=== PATIENT | female | born 1960 | race Caucasian/White ===

== ENCOUNTER 2016-06-24 12:37 | Inpatient (IN) | payer MEDICAID, OTHER ==
--- NOTE | 2016-06-24 13:59 | C.PDOC ---
History Of Present Illness 56-year-old female, presents to the emergency department, prescreened for detox from heroin. Last use was this morning; States he also uses Marijuana. Denies any other drug use. No other complaints at this time. PRESCREEN FOR HEROIN DETOX. LAST USE THIS MORNING. +MARIJUANA, DENIES OTHER DRUG USE. ASYMPT. EXAM NEG Time Seen by Provider: 06/24/16 13:54 Chief Complaint (Nursing): Substance Abuse History Per: Patient History/Exam Limitations: no limitations Past Medical History Reviewed: Historical Data, Nursing Documentation, Vital Signs Vital Signs: Last Vital Signs Temp 98.2 F 06/24/16 13:46 Pulse 61 06/24/16 13:46 Resp 18 06/24/16 13:46 BP 131/85 06/24/16 13:46 Pulse Ox 100 06/24/16 15:43 - Medical History PMH: Gastrointestinal Ulcer Denies: Diabetes, Hepatitis, HIV, HTN, Chronic Kidney Disease, Seizures, Sexually Transmitted Disease - [facility] Procedures DRUG DETOXIFICATION (08/26/14) OTHER GROUP THERAPY (08/26/14) Family History: States: Unknown Family Hx - Social History Hx Tobacco Use: Yes Hx Alcohol Use: No Hx Substance Use: Yes (last used this morning) - Immunization History Hx Tetanus Toxoid Vaccination: No Hx Influenza Vaccination: No Hx Pneumococcal Vaccination: No Review Of Systems Except As Marked, All Systems Reviewed And Found Negative. Constitutional: Negative for: Fever Cardiovascular: Negative for: Chest Pain Respiratory: Negative for: Shortness of Breath Gastrointestinal: Negative for: Vomiting Psych: Negative for: Suicidal ideation Physical Exam - Physical Exam Appears: Non-toxic, No Acute Distress Skin: Warm, Dry, No Rash Head: Atraumatic, Normacephalic Eye(s): bilateral: Normal Inspection, PERRL Nose: Normal Neck: Normal ROM Respiratory: No Accessory Muscle Use Gastrointestinal/Abdominal: Normal Exam Back: Normal Inspection Extremity: Normal ROM Neurological/Psych: Oriented x3, Normal Speech ED Course And Treatment - Laboratory Results Result Diagrams: 06/24/16 14:37 06/24/16 14:37 O2 Sat by Pulse Oximetry: 100 Progress - Re-Evaluation Re-evaluation Note: 06/24/16 13:58 D/W CRISIS AASHISH RAGLAND EVAL IN ER 06/24/16 15:43 MED CLEAR FOR DETOX - Data Reviewed Data Reviewed: Lab, Old records - Continuity of Care Discussed pt. case with performance test consultant/specialty: Psychiatry Disposition Counseled Patient/Family Regarding: Studies Performed, Diagnosis - Disposition Disposition: HOSPITALIZED Disposition Time: 18:04 Condition: STABLE - Clinical Impression Clinical Impression: Opiate dependence - Scribe Statement The provider has reviewed the documentation as recorded by the Greggibgustavo Schaffer All medical record entries made by the Scribe were at my direction and personally dictated by me. I have reviewed the chart and agree that the record accurately reflects my personal performance of the history, physical exam, medical decision making, and the department course for this patient. I have also personally directed, reviewed, and agree with the discharge instructions and disposition. Decision To Admit - Pt Status Changed To: Hospital Disposition Of: Inpatient - Admit Certification Admit to Inpatient:: After my assessment, the patient will require hospitalization for at least two midnights. This is because of the severity of symptoms shown, intensity of services needed, and/or the medical risk in this patient being treated as an outpatient. - InPatient: Physician Admission Certification: I certify that this patient requires 2 or more midnights of care for the following reason:: SEE NOTE - . Bed Request Type: Detox Admitting Physician: Dorcas Garcia Patient Diagnosis: Opiate dependence
[2016-06-24 14:44] LABS: BASO # 0.1 K/uL (0.0-0.2); BASO % 0.5 % (0.0-2.0); EOS # 0.2 K/uL (0.0-0.7); EOS % 2.2 % (0.0-4.0); HEMATOCRIT 36.9 % (34.0-47.0); LYMPH # 3.5 K/uL (1.0-4.3); LYMPH % 33.4 % (20.0-40.0); MEAN CELL VOLUME 87.6 fL (81.0-99.0); MEAN CORPUSCULAR HEMOGLOBIN 28.6 pg (27.0-31.0); MEAN CORPUSCULAR HGB CONC 32.7 g/dL (33.0-37.0); MEAN PLATELET VOLUME 9.2 fL (7.2-11.7); MONO # 0.6 K/uL (0.0-0.8); MONO % 5.6 % (0.0-10.0); RED CELL DISTRIBUTION WIDTH 12.8 % (11.5-14.5); WHITE BLOOD COUNT 10.4 K/uL (4.8-10.8)
[2016-06-24 14:49] LABS: RBC URINE 10 /hpf (0-3); URINE BACTERIA RARE (<OCC); URINE BILIRUBIN NEGATIVE (NEGATIVE); URINE BLOOD 1+ (NEGATIVE); URINE COLOR Yellow (YELLOW); URINE GLUCOSE (UA) NORMAL (Normal); URINE KETONE TRACE mg/dL (NEGATIVE); URINE LEUKOCYTE ESTERASE NEG Leu/uL (Negative); URINE PROTEIN NEGATIVE (NEGATIVE); URINE UROBILINOGEN NORMAL mg/dL (0.2-1.0); WBC URINE 1 /hpf (0-5)
[2016-06-24 14:57] LABS: CHLORIDE 104 mmol/L (98-107)
[2016-06-24 14:58] LABS: POTASSIUM 3.8 mmol/L (3.6-5.2); SODIUM 140 mmol/L (132-148)
[2016-06-24 15:00] LABS: ALB/GLOB RATIO 1.3 (1.0-2.1); ALKALINE PHOSPHATASE 112 U/L (38-126); AST/SGOT 30 U/L (14-36); BILIRUBIN,TOTAL 0.9 mg/dL (0.2-1.3); BLOOD UREA NITROGEN 8 mg/dL (7-17); CARBON DIOXIDE 24 mmol/L (22-30); GFR AFRICAN-AMERICAN > 60; TOTAL PROTEIN 7.7 g/dL (6.3-8.3)
[2016-06-24 15:01] LABS: ALCOHOL SERUM < 10 mg/dl (0-10); ALT/SGPT 9 U/L (9-52); CALCIUM 8.8 mg/dl (8.6-10.4); GLUCOSE,RANDOM 80 mg/dL (65-105)
[2016-06-24] MEDS ORDERED: Buprenorphine Hydrochloride 2 mg SL ONE ×2 (19:20→20:24)
[2016-06-25] MEDS ORDERED: Aluminum Hydroxide/Magnesium Hydroxide Susp (30 mL) PO PRN (08:46)
[2016-06-25] MEDS: Buprenorphine Hydrochloride 2 mg SL SCH (09:51)
--- NOTE | 2016-06-25 12:16 | PCM.PSYCH ---
Initial Psychiatric Evaluation - Initial Psychiatric Evaluation Type of Admission: Voluntary Legal Status: Capacity Chief Complaint (in patient's own words): "I need help so bad." History of Present Illness and Precipitating Events: The patient is seen, chart reviewed and case discussed. This is a 56-year-old -[place] female, lost job in late 2015, living with her adult daughter in [place], . The patient uses 7 bags of intranasal heroin for the past 2-3 months. She has been clean for about 2 years prior to that and she was in detox in our program in 2014. She claims that after her uncle she got depressed and relapsed. She first used opiates in her late 40s. However she had used cocaine on and off prior to that and also she still uses marijuana occasionally and smokes 6 or 7 cigarettes a day. The patient is tearful and depressed but denies feeling suicidal. No manic or psychotic symptoms elicited. She has losses in her life and stressors. She is currently on no medications but used an antidepressant in the past. She particularly complains of not having appetite and losing weight. She denies alcohol use and other drug use. Past psych history: Depression on and off. This is her fourth detox and she was in [facility] [place] for rehabilitation in the past. Family psych history: Denies Medical history: Weight loss Current Medications: Active Medications Generic Name Dose Route Start Last Admin Trade Name Freq PRN Reason Stop Dose Admin Al Hydrox/Mg Hydrox/Simethicone 30 ml 06/25/16 08:46 Maalox 30 Ml PO TID PRN Indigestion / Heartburn Buprenorphine HCl 8 mg 06/25/16 10:00 06/25/16 09:51 Subutex SL 06/29/16 09:59 8 mg DAILY SARIKA Administration Taper Clonidine HCl 0.1 mg 06/24/16 18:17 Catapres PO Q8 PRN opiate withdrawal Hydroxyzine HCl 25 mg 06/24/16 18:23 06/24/16 19:24 Atarax PO 25 mg Q6 PRN Administration Anxiety Loperamide HCl 2 mg 06/25/16 08:46 Imodium PO Q8 PRN Diarrhea Mirtazapine 15 mg 06/25/16 22:00 Remeron PO HS SARIKA Ondansetron HCl 4 mg 06/25/16 08:46 Zofran Tab PO Q8 PRN Nausea/Vomiting Trazodone HCl 50 mg 06/24/16 22:00 Desyrel PO HS PRN Insomnia Past Psychiatric History - Past Psychiatric History Previous Treatment History: None Pertinent Medical Hx (Current Medical&Sleep Prob, Allergies): Allergies Allergy/AdvReac Type Severity Reaction Status Date / Time No Known Allergies Allergy Verified 08/26/14 18:27 RX: Cyproheptadine [Periactin] 4 mg PO HS #30 tab 09/02/14 RX: Famotidine [Pepcid] 40 mg PO DAILY #30 tab 09/02/14 Review of Systems - Neurological Neurological: UNREMARKABLE - Psychiatric Psychiatric: Abnormal Sleep Pattern, Anhedonia, Anxiety, Change in Appetite, Depression, Difficulty Concentrating. absent: Hallucinations, Homicidal Ideation, Suicidal Ideation Mental Status Examination - Personal Presentation Personal Presentation: Looks stated age - Affect Affect: Constricted (tearful) - Motor Activity Motor Activity: Calm - Reliability in Providing Information Reliability in Providing Information: Good - Speech Speech: Organized - Mood Mood: Depressed, Anxious - Formal Thought Process Formal Thought Process: No Impairment - Cognitive Functions Orientation: Person, Place, Situation, Time Sensorium: Alert Attention/Concentration: Easily distracted Abstract Thinking: Anderson Estimate of Intelligence: Below average Judgement: Intact, as evidence by: Insight regarding need for hospitalization Memory: Recent intact, as evidence by: Ability to recall events of the day, Remote intact, as evidenced by: Abilit to recall sig. life events - Risk Risk: Withdrawal, Diminished functioning - Strength & Assets Inventory Strength & Assets Inventory: Cooperative - Limitations Limitations: Living alone DSM 5 DX - DSM 5 DSM 5 Diagnosis: Opioid withdrawal Opioid use d/o - severe Major depression - single, moderate Cannabis use d/o - moderate Cocaine use d/o - in remission - Recommended/Plan of Treatment Treatment Recommendations and Plan of Treatment: Opioids: -Subutex detox -As needed medications -[place] and CBT for abstinence -Attend groups and activities -Refer to outpatient program and MAT Cannabis: -[place] and CBT for abstinence -Consider gabapentin Depression: -Lexapro and remeron -Support and CBT 32 minutes Projected ELOS: 4 days Prognosis: Good with treatment Discharge Plan and Discharge Criteria: No wdw sxs Refeer to IOP and MAT - Smoking Cessation Smoking Cessation Initiated: Yes
--- NOTE | 2016-06-25 18:56 | CP.PCM.CON ---
Past Patient History - Past Medical History & Family History Past Medical History?: Yes - Past Social History Smoking Status: Light Smoker < 10 Cigarettes Daily - CARDIAC Hx Hypertension: No - PULMONARY Hx Tuberculosis: No - NEUROLOGICAL Hx Seizures: No - HEENT Hx HEENT Problems: No - RENAL Hx Chronic Kidney Disease: No - ENDOCRINE/METABOLIC Hx Endocrine Disorders: No - HEMATOLOGICAL/ONCOLOGICAL Hx Human Immunodeficiency Virus (HIV): No - INTEGUMENTARY Hx Dermatological Problems: No - MUSCULOSKELETAL/RHEUMATOLOGICAL Hx Falls: No - GASTROINTESTINAL Hx Gastroesophageal Reflux: Yes - GENITOURINARY/GYNECOLOGICAL Hx Sexually Transmitted Disorders: No - PSYCHIATRIC Hx Substance Use: Yes - SURGICAL HISTORY Hx Surgeries: Yes Hx Section: Yes - ANESTHESIA Hx Anesthesia: Yes Hx Anesthesia Reactions: No Meds Allergies/Adverse Reactions: Allergies Allergy/AdvReac Type Severity Reaction Status Date / Time No Known Allergies Allergy Verified 08/26/14 18:27 - Medications Medications: Current Medications Al Hydrox/Mg Hydrox/Simethicone (Maalox 30 Ml) 30 ml PO TID PRN PRN Reason: Indigestion / Heartburn Buprenorphine HCl (Subutex) 8 mg SL DAILY [facility] PRN Reason: Taper Stop: 06/29/16 09:59 Last Admin: 06/25/16 09:51 Dose: 8 mg Clonidine HCl (Catapres) 0.1 mg PO Q8 PRN PRN Reason: opiate withdrawal Dicyclomine HCl (Bentyl) 10 mg PO QID PRN PRN Reason: abdominal spasm Last Admin: 06/25/16 17:33 Dose: 10 mg Escitalopram Oxalate (Lexapro) 5 mg PO DAILY SARIKA Last Admin: 06/25/16 13:39 Dose: 5 mg Hydroxyzine HCl (Atarax) 25 mg PO Q6 PRN PRN Reason: Anxiety Last Admin: 06/25/16 17:33 Dose: 25 mg Loperamide HCl (Imodium) 2 mg PO Q8 PRN PRN Reason: Diarrhea Mirtazapine (Remeron) 15 mg PO HS [facility] Ondansetron HCl (Zofran Tab) 4 mg PO Q8 PRN PRN Reason: Nausea/Vomiting Last Admin: 06/25/16 17:00 Dose: 4 mg Trazodone HCl (Desyrel) 50 mg PO HS PRN PRN Reason: Insomnia Results - Vital Signs Recent Vital Signs: Last Vital Signs Temp 98.7 F 06/25/16 17:55 Pulse 75 06/25/16 17:55 Resp 18 06/25/16 17:55 BP 127/98 H 06/25/16 17:55 Pulse Ox 97 06/25/16 17:55 - Labs Result Diagrams: 06/24/16 14:37 06/24/16 14:37
--- NOTE | 2016-06-25 19:21 | CP.PCM.PCO ---
Physician Communication Note - Physician Communication Note Physician Communication Note: PMD: Dr. Lui Steinberg; who will see the patient in AM ; spoke and confirmed.
[2016-06-25] MEDS ORDERED: Buprenorphine Hydrochloride 2 mg SL ONE (19:53)
[2016-06-25 19:55] LABS: BASO % 0.4 % (0.0-2.0); EOS # 0.1 K/uL (0.0-0.7); EOS % 0.4 % (0.0-4.0); HEMATOCRIT 39.3 % (34.0-47.0); LYMPH # 1.5 K/uL (1.0-4.3); MEAN CELL VOLUME 86.5 fL (81.0-99.0); MEAN CORPUSCULAR HEMOGLOBIN 28.5 pg (27.0-31.0); MEAN CORPUSCULAR HGB CONC 32.9 g/dL (33.0-37.0); MEAN PLATELET VOLUME 8.9 fL (7.2-11.7); MONO # 0.4 K/uL (0.0-0.8); MONO % 3.1 % (0.0-10.0); RED CELL DISTRIBUTION WIDTH 12.8 % (11.5-14.5); WHITE BLOOD COUNT 12.2 K/uL (4.8-10.8)
[2016-06-25 20:08] LABS: CHLORIDE 103 mmol/L (98-107)
[2016-06-25 20:09] LABS: POTASSIUM 3.8 mmol/L (3.6-5.2); SODIUM 142 mmol/L (132-148)
[2016-06-25 20:11] LABS: ALB/GLOB RATIO 1.2 (1.0-2.1); ALKALINE PHOSPHATASE 141 U/L (38-126); AST/SGOT 30 U/L (14-36); BLOOD UREA NITROGEN 10 mg/dL (7-17); CARBON DIOXIDE 25 mmol/L (22-30); GFR AFRICAN-AMERICAN > 60; TOTAL PROTEIN 8.3 g/dL (6.3-8.3)
[2016-06-25 20:12] LABS: ALT/SGPT 26 U/L (9-52); CALCIUM 9.4 mg/dl (8.6-10.4); GLUCOSE,RANDOM 117 mg/dL (65-105)
[2016-06-26] MEDS: Buprenorphine Hydrochloride 2 mg SL SCH (10:46)
--- NOTE | 2016-06-26 12:58 | PCM.PYCHPN ---
Psychiatric Progress Note - Psychiatric Progress Note Patient seen today, length of contact: 16 min Patient Chief Complaint: "I need ensure" Problems Identified/Issues Discussed: The pt is seen again but in bed, as she feels very weak, sick and still c/o poor appetite and NV Her PCP is contacted for consult Support and psychoed given Detox is ongoing for now Pt is refusing diet boost b/c she doesn't like the taste. Medication Change: Yes (detox changes daily) Medical Record Reviewed: Yes Mental Status Examination - Cognitive Function Orientation: Person, Place, Situation, Time Memory: Impaired Attention: Poor Concentration: Poor Association: WNL Fund of Knowledge: Poor - Mood Mood: Depressed, Anxious - Affect Affect: Constricted (tearful) - Speech Speech: Soft - Formal Thought Process Formal Thought Process: No Impairment - Suicidal Ideation Suicidal Ideation: No - Homicidal Ideation Homicidal Ideation: No Goal/Treatment Plan - Goal/Treatment Plan Need for Continued Stay: Discharge may exacerbated symptoms, Severe functional impairment Progress Toward Problem(s) and Goals/Treatment Plan: Opioids: -Subutex detox -As needed medications -[place] and CBT for abstinence -Attend groups and activities -Refer to outpatient program and MAT Cannabis: -[place] and CBT for abstinence -Consider gabapentin Depression: -Lexapro and remeron -Support and CBT
[2016-06-26 15:50] VITALS: RESP 18
--- NOTE | 2016-06-26 18:25 | CP.PCM.HP ---
History of Present Illness - History of Present Illness History of Present Illness: came in for detox very depressed loss of wt and apetite vomiting stomack upset Present on Admission - Present on Admission Any Indicators Present on Admission: No Review of Systems - Review of Systems Systems not reviewed;Unavailable: Acuity of Condition - Constitutional Constitutional: Anorexia, Fatigue, Weight Loss - EENT Eyes: As Per HPI Ears: As Per HPI Nose/Mouth/Throat: As Per HPI - Breasts Breasts: As Per HPI - Cardiovascular Cardiovascular: As Per HPI - Respiratory Respiratory: Dyspnea on Exertion - Gastrointestinal Gastrointestinal: Heartburn, Nausea, Vomiting - Genitourinary Genitourinary: As Per HPI - Reproductive: Female Reproductive:Female: Post Menopausal - Menstruation Menstruation: As Per HPI - Musculoskeletal Musculoskeletal: Arthralgias - Integumentary Integumentary: Dry Skin - Neurological Neurological: Weakness - Psychiatric Psychiatric: Anxiety, Depression - Endocrine Endocrine: Change in Body Appearance Past Patient History - Past Medical History & Family History Past Medical History?: Yes - Past Social History Smoking Status: Light Smoker < 10 Cigarettes Daily Chewing Tobacco Use: No Cigar Use: No Alcohol: None Drugs: Cocaine, Opiates - CARDIAC Hx Hypertension: Yes - PULMONARY Hx Tuberculosis: No - NEUROLOGICAL Hx Seizures: No - HEENT Hx HEENT Problems: No - RENAL Hx Chronic Kidney Disease: No - ENDOCRINE/METABOLIC Hx Endocrine Disorders: No - HEMATOLOGICAL/ONCOLOGICAL Hx Human Immunodeficiency Virus (HIV): No - INTEGUMENTARY Hx Dermatological Problems: No - MUSCULOSKELETAL/RHEUMATOLOGICAL Hx Falls: No - GASTROINTESTINAL Hx Gastroesophageal Reflux: Yes - GENITOURINARY/GYNECOLOGICAL Hx Sexually Transmitted Disorders: No - PSYCHIATRIC Hx Substance Use: Yes - SURGICAL HISTORY Hx Surgeries: Yes Hx Section: Yes - ANESTHESIA Hx Anesthesia: Yes Hx Anesthesia Reactions: No Meds Allergies/Adverse Reactions: Allergies Allergy/AdvReac Type Severity Reaction Status Date / Time No Known Allergies Allergy Verified 08/26/14 18:27 Physical Exam - Constitutional Appears: In Acute Distress - Head Exam Head Exam: ATRAUMATIC - Eye Exam Eye Exam: Normal appearance Pupil Exam: NORMAL ACCOMODATION - ENT Exam ENT Exam: Mucous Membranes Dry - Neck Exam Neck exam: Positive for: Full Rom - Respiratory Exam Respiratory Exam: Clear to Auscultation Bilateral - Cardiovascular Exam Cardiovascular Exam: REGULAR RHYTHM - GI/Abdominal Exam GI & Abdominal Exam: Guarding, Normal Bowel Sounds, Tenderness - Rectal Exam Rectal Exam: NORMAL INSPECTION - Exam Exam: NORMAL INSPECTION - Extremities Exam Extremities exam: Positive for: normal inspection - Back Exam Back exam: NORMAL INSPECTION - Neurological Exam Neurological exam: Oriented x3 - Psychiatric Exam Psychiatric exam: Anxious, Depressed - Skin Skin Exam: Normal Color Results - Vital Signs Recent Vital Signs: Last Vital Signs Temp 98.7 F 06/26/16 15:49 Pulse 92 H 06/26/16 15:49 Resp 18 06/26/16 15:49 BP 100/71 06/26/16 15:49 Pulse Ox 98 06/26/16 15:49 - Labs Result Diagrams: 06/25/16 19:52 06/25/16 19:50 Labs: Laboratory Results - last 24 hr 06/25/16 06/25/16 19:50 19:52 WBC 12.2 H RBC 4.54 Hgb 12.9 Hct 39.3 MCV 86.5 MCH 28.5 MCHC 32.9 L RDW 12.8 Plt Count 223 MPV 8.9 Neut % (Auto) 84.1 H Lymph % (Auto) 12.0 L [place] % (Auto) 3.1 Eos % (Auto) 0.4 Baso % (Auto) 0.4 Neut # 10.3 H Lymph # 1.5 [place] # 0.4 Eos # 0.1 Baso # 0.0 Sodium 142 Potassium 3.8 Chloride 103 Carbon Dioxide 25 Anion Gap 18 BUN 10 Creatinine 0.7 Est GFR ( Amer) > 60 Est GFR (Non-Af Amer) > 60 Random Glucose 117 H Calcium 9.4 Total Bilirubin 2.0 H AST 30 ALT 26 Alkaline Phosphatase 141 H D Total Protein 8.3 Albumin 4.6 Globulin 3.7 Albumin/Globulin Ratio 1.2 Assessment & Plan - Assessment and Plan (Free Text) Assessment: substance abuse heroin ac gastritis vomiting wt loss weekness generalised loo of apetite loss of wt Plan: lab ekg and asper orders - Date & Time Date: 06/19/16 Time: 18:31
[2016-06-27 08:14] LABS: HEMATOCRIT 42.3 % (34.0-47.0); MEAN CELL VOLUME 86.3 fL (81.0-99.0); MEAN CORPUSCULAR HEMOGLOBIN 28.3 pg (27.0-31.0); MEAN CORPUSCULAR HGB CONC 32.8 g/dL (33.0-37.0); MEAN PLATELET VOLUME 9.3 fL (7.2-11.7); WHITE BLOOD COUNT 11.5 K/uL (4.8-10.8)
[2016-06-27 08:27] LABS: CHLORIDE 103 mmol/L (98-107); POTASSIUM 4.2 mmol/L (3.6-5.2); SODIUM 142 mmol/L (132-148)
[2016-06-27 08:30] LABS: BLOOD UREA NITROGEN 17 mg/dL (7-17); CALCIUM 9.5 mg/dl (8.6-10.4); CARBON DIOXIDE 22 mmol/L (22-30); GFR AFRICAN-AMERICAN > 60; GLUCOSE,RANDOM 104 mg/dL (65-105)
[2016-06-27 08:48] LABS: FREE T4 1.27 ng/dL (0.78-2.19)
[2016-06-27 09:02] LABS: THYROID STIMULATING HORMONE 0.7 mIU/L (0.46-4.68)
[2016-06-27 09:21] LABS: RBC URINE 19 /hpf (0-3); URINE BILIRUBIN NEGATIVE (NEGATIVE); URINE BLOOD 2+ (NEGATIVE); URINE COLOR Yellow (YELLOW); URINE GLUCOSE (UA) NORMAL (Normal); URINE HYALINE CAST 0-2 /lpf (0-2); URINE KETONE 1+ mg/dL (NEGATIVE); URINE LEUKOCYTE ESTERASE TRACE Leu/uL (Negative); URINE PROTEIN 1+ mg/dL (NEGATIVE); URINE UROBILINOGEN NORMAL mg/dL (0.2-1.0); WBC URINE 3 /hpf (0-5)
[2016-06-27] MEDS: Buprenorphine Hydrochloride 2 mg SL SCH (09:25)
[2016-06-27] MEDS ORDERED: Multiple Vitamins Tab PO SCH (10:00)
[2016-06-27] MEDS: Multiple Vitamins Tab PO SCH (10:04)
--- NOTE | 2016-06-27 12:57 | PCM.PYCHPN ---
Psychiatric Progress Note - Psychiatric Progress Note Patient seen today, length of contact: 17 min Patient Chief Complaint: "I am a little better" Problems Identified/Issues Discussed: The pt is seen again but in bed again. Feels somewhat better and looks better Mood is improving. Still has wdw sxs but mostly in control. Support and psychoed given IN used. Medication Change: Yes (detox changes daily) Medical Record Reviewed: Yes Mental Status Examination - Cognitive Function Orientation: Person, Place, Situation, Time Memory: Impaired Attention: Poor Concentration: Poor Association: WNL Fund of Knowledge: Poor - Mood Mood: Depressed, Anxious - Affect Affect: Constricted (tearful) - Speech Speech: Soft - Formal Thought Process Formal Thought Process: No Impairment - Suicidal Ideation Suicidal Ideation: No - Homicidal Ideation Homicidal Ideation: No Goal/Treatment Plan - Goal/Treatment Plan Need for Continued Stay: Discharge may exacerbated symptoms, Severe functional impairment Progress Toward Problem(s) and Goals/Treatment Plan: Opioids: -Subutex detox -As needed medications -[place] and CBT for abstinence -Attend groups and activities -Refer to outpatient program and MAT Cannabis: -[place] and CBT for abstinence -Consider gabapentin Depression: -Lexapro and remeron -Support and CBT
[2016-06-27] MEDS: Vitamins A & D Oint UD Foilpak TOP PRN (17:37)
[2016-06-28 06:37] VITALS: O2SAT 99
[2016-06-28] MEDS: Vitamins A & D Oint UD Foilpak TOP PRN (08:17)
--- NOTE | 2016-06-28 08:49 | PCM.PYCHDC ---
Mental Status Examination - Mental Status Examination Orientation: Person, Place, Situation, Time Memory: Impaired Mood: Depressed, Anxious Affect: Constricted Speech: Appropriate Attention: Poor Concentration: Poor Association: WNL Fund of Knowledge: Poor Formal Thought Process: No Impairment Suicidal Ideation: No Current Homicidal Ideation?: No Discharge Summary - Discharge Note Reason for Hospitalization: Opioid detox Laboratory Data: Abnormal Lab Results 06/27/16 06/27/16 07:57 09:08 Free T4 1.27 TSH 3rd Generation 0.70 Urine Color Yellow Urine Clarity Hazy Urine pH 5.0 Ur Specific [place] 1.028 Urine Protein 1+ H Urine Glucose (UA) Normal Urine Ketones 1+ H Urine Blood 2+ H Urine Nitrate Negative Urine Bilirubin Negative Urine Urobilinogen Normal Ur Leukocyte Esterase Trace Urine WBC (Auto) 3 Urine RBC (Auto) 19 H Ur Squamous Epith Cells 5 Hyaline Casts 0-2 Consultations:: List each consultation separately and include: 1. Reason for request. 2. Findings. 3. Follow-up Summary of Hospital Course include:: 1. Description of specific treatment plan utilized for patients during their course of treatmen. 2. Summarize the time- course for resolution of acute symptoms and/or regressed behaviors. 3. Describe issues identified and worked on during hospitalization. 4. Describe medication utilized. 5. Describe medical problems identified and treated. 6. Reassessment of suicide risk Summary of Hospital Course: The patient is seen, chart reviewed and case discussed. On admission: This is a 56-year-old -[place] female, lost job in late 2015, living with her adult daughter in [place], . The patient uses 7 bags of intranasal heroin for the past 2-3 months. She has been clean for about 2 years prior to that and she was in detox in our program in 2014. She claims that after her uncle she got depressed and relapsed. She first used opiates in her late 40s. However she had used cocaine on and off prior to that and also she still uses marijuana occasionally and smokes 6 or 7 cigarettes a day. The patient is tearful and depressed but denies feeling suicidal. No manic or psychotic symptoms elicited. She has losses in her life and stressors. She is currently on no medications but used an antidepressant in the past. She particularly complains of not having appetite and losing weight. She denies alcohol use and other drug use. Past psych history: Depression on and off. This is her fourth detox and she was in [place] [facility] for rehabilitation in the past. Family psych history: Denies Medical history: Weight loss Hospital Course: The pt was admitted and started on treatment with psychotherapy, support, psychoeducation and medications. [place] and CBT used. The pt attended groups and activities rarely, as she was feeling "sick and weak " a lot. She had hyperemesis and malnutrition but refused Diet Boost as it was "too sweet." She denied having an eating d/o but claimed she had weight gain problem, no appetite despite being on periactin, and throwing up at times w/o inducing. Her PCP, Dr. Steinberg, came and saw her. All the risks and benefits of medications are discussed and the patient understood and agreed. After care discussed with the patient. - Final Diagnosis (DSM 5) Condition upon Discharge: STABLE DSM 5: Opioid withdrawal Opioid use d/o - severe Major depression - single, moderate Cannabis use d/o - moderate Cocaine use d/o - in remission Disposition: HOME/ ROUTINE Follow-up Treatment Plan: Continue below medications after discharge. Follow after care plan as discussed. She was not interested in much but agreed to come to grief groups which she claimed had triggered this relapse. Use relapse prevention skills Return to ER or call 911 if suicidal, homicidal or symptoms relapse. Stay away from stress, alcohol and drugs. Follow up with PCP. Ensure Plus rx'ed but denied by Medicaid Prescriptions/Medication Reconciliation: Cyproheptadine [Periactin] 4 mg PO HS #30 tab Escitalopram [Lexapro] 10 mg PO DAILY #30 tab Famotidine [Pepcid] 40 mg PO DAILY #30 tab hydrOXYzine HCl [Atarax] 25 mg PO BID PRN #60 tab PRN Reason: Anxiety Mirtazapine [Remeron] 30 mg PO HS #30 tab
[2016-06-28] MEDS: Multiple Vitamins Tab PO SCH (09:56)
[2016-06-28] MEDS: Buprenorphine Hydrochloride 2 mg SL SCH (09:56)
[2016-06-28 11:14] VITALS: BP 116/83; PULSE 73; TEMP 98.2
--- NOTE | 2016-07-19 11:55 | CARD ---
APPROVED REPORT EKG Measurement Heart [id number] <Conclusion> Normal sinus rhythm Possible Left atrial enlargement Borderline ECG
== END 2016-06-28 11:00 | disposition home or self-care (01) | DRG 745 ==
LOC: C.ER 12:37 → C.7D 18:05
PROVIDERS: ADMIT Psychiatry & Neurology Psychiatry; ATTEND Psychiatry & Neurology Psychiatry
PROC: HZ2ZZZZ Detoxification Services for Substance Abuse Treatment (ICD-10-PCS; principal; 2016-06-24)
PROC: HZ32ZZZ Individual Counseling for Substance Abuse Treatment, Cognitive-Behavioral (ICD-10-PCS; 2016-06-24)
PROC: HZ46ZZZ Group Counseling for Substance Abuse Treatment, Psychoeducation (ICD-10-PCS; 2016-06-24)
PROC: HZ42ZZZ Group Counseling for Substance Abuse Treatment, Cognitive-Behavioral (ICD-10-PCS; 2016-06-24)
PROC: HZ36ZZZ Individual Counseling for Substance Abuse Treatment, Psychoeducation (ICD-10-PCS; 2016-06-24)
DX: F11.23 Opioid dependence with withdrawal (principal); F32.1 Major depressive disorder, single episode, moderate; F17.210 Nicotine dependence, cigarettes, uncomplicated; F12.90 Cannabis use, unspecified, uncomplicated; F14.90 Cocaine use, unspecified, uncomplicated; K29.60 Other gastritis without bleeding

== ENCOUNTER 2017-09-08 09:38 | Inpatient (IN) | payer MEDICAID, OTHER ==
[2017-09-08 10:00] VITALS: BMI 20.9
--- NOTE | 2017-09-08 10:36 | C.PDOC ---
History Of Present Illness 57 y/o female, prescreened, presents to the ER requesting detox from heroin. Patient states that she snorts heroin and her last use was at 7 :30 am today. Denies IVDA. Denies withdrawal seizures. Patient denies having suicidal ideation , homicidal ideation, and active physical complaints. Time Seen by Provider: 09/08/17 10:09 Chief Complaint (Nursing): Substance Abuse History Per: Patient History/Exam Limitations: no limitations Past Medical History Reviewed: Historical Data, Nursing Documentation, Vital Signs Vital Signs: Last Vital Signs Temp 98.5 F 09/08/17 10:00 Pulse 60 09/08/17 13:02 Resp 19 09/08/17 13:02 BP 116/72 09/08/17 13:02 Pulse Ox 100 09/08/17 13:02 - Medical History PMH: Gastrointestinal Ulcer, HTN Denies: Diabetes, Hepatitis, HIV, Chronic Kidney Disease, Seizures, Sexually Transmitted Disease Other Surgeries: Hx of surgeries - [facility] Procedures DETOXIFICATION SERVICES FOR SUBSTANCE ABUSE TREATMENT (06/24/16) DRUG DETOXIFICATION (08/26/14) GROUP [employer] FOR SUBSTANCE ABUSE TREATMENT, PSYCHOEDUCATION (06/24/16) GROUP P[employer] FOR SUBSTANCE ABUSE, COGNITIVE BEHAVIORAL (06/24/16) INDIV P[employer]S [employer] FOR SUBSTANCE ABUSE TREATMENT, PSYCHOEDUCATION (06/24/16) INDIV PANTS [employer] FOR SUBSTANCE ABUSE, COGNITIVE BEHAVIORAL (06/24/16) OTHER GROUP THERAPY (08/26/14) Family History: States: No Known Family Hx - Social History Hx Tobacco Use: Yes Hx Alcohol Use: No Hx Substance Use: Yes - Immunization History Hx Tetanus Toxoid Vaccination: No Hx Influenza Vaccination: No Hx Pneumococcal Vaccination: No Review Of Systems Except As Marked, All Systems Reviewed And Found Negative. Constitutional: Negative for: Fever, Chills Physical Exam - Physical Exam Appears: Well, Non-toxic, No Acute Distress Skin: Normal Color, Warm, Dry Head: Atraumatic, Normacephalic Eye(s): bilateral: Normal Inspection, EOMI Nose: Normal Oral Mucosa: Moist Neck: Normal ROM, Supple Chest: Symmetrical Cardiovascular: Rhythm Regular Respiratory: Normal Breath Sounds, No Rales, No Rhonchi, No Wheezing Gastrointestinal/Abdominal: Normal Exam, Soft, No Tenderness, No Guarding, No Rebound Extremity: Normal ROM Neurological/Psych: Oriented x3, Normal Speech ED Course And Treatment - Laboratory Results Result Diagrams: 09/08/17 10:44 09/08/17 10:44 O2 Sat by Pulse Oximetry: 99 (RA) Pulse Ox Interpretation: Normal Progress Note: stock worker saw evaluated pt at bedside and discusssed case with Dr Ponce who agreed upon admisison. Disposition - Disposition Disposition: HOSPITALIZED Disposition Time: 12:00 Condition: STABLE - Clinical Impression Clinical Impression: Opiate dependence - PA / CANDY ATTENDANT / Resident Statement MD/DO has reviewed & agrees with the documentation as recorded. - Scribe Statement The provider has reviewed the documentation as recorded by the Scribe Aarti Cifuentes Provider Attestation All medical record entries made by the Greggibe were at my direction and personally dictated by me. I have reviewed the chart and agree that the record accurately reflects my personal performance of the history, physical exam, medical decision making, and the department course for this patient. I have also personally directed, reviewed, and agree with the discharge instructions and disposition.
[2017-09-08 10:55] LABS: BASO # 0.1 K/uL (0.0-0.2); BASO % 0.5 % (0.0-2.0); EOS # 0.2 K/uL (0.0-0.7); EOS % 1.4 % (0.0-4.0); HEMOGLOBIN 12.7 g/dL (11.0-16.0); LYMPH # 2.4 K/uL (1.0-4.3); LYMPH % 20.8 % (20.0-40.0); MEAN CELL VOLUME 89.6 fL (81.0-99.0); MEAN CORPUSCULAR HEMOGLOBIN 29.8 pg (27.0-31.0); MEAN CORPUSCULAR HGB CONC 33.2 g/dL (33.0-37.0); MEAN PLATELET VOLUME 9.7 fL (7.2-11.7); MONO # 0.5 K/uL (0.0-0.8); MONO % 4.3 % (0.0-10.0); NEUT # 8.3 K/uL (1.8-7.0); NRBC % 0.1 % (0.0-2.0); RBC 4.28 Mil/uL (3.80-5.20); RED CELL DISTRIBUTION WIDTH 13.3 % (11.5-14.5); WHITE BLOOD COUNT 11.4 K/uL (4.8-10.8)
[2017-09-08 11:17] LABS: ALB/GLOB RATIO 1.4 (1.0-2.1); ALBUMIN 4.6 g/dL (3.5-5.0); ALT/SGPT 22 U/L (9-52); AST/SGOT 27 U/L (14-36); BLOOD UREA NITROGEN 6 mg/dL (7-17); CALCIUM 9.7 mg/dl (8.6-10.4); GFR AFRICAN-AMERICAN > 60; GFR NON-AFRICAN AMERICAN > 60
[2017-09-08 12:41] LABS: SQUAMOUS EPITHIAL 8 /hpf (0-5); URINE BILIRUBIN NEGATIVE (NEGATIVE); URINE CLARITY Hazy (Clear); URINE COLOR Amber (YELLOW); URINE GLUCOSE (UA) NORMAL (Normal); URINE LEUKOCYTE ESTERASE NEG Leu/uL (Negative); URINE PROTEIN NEGATIVE (NEGATIVE)
[2017-09-08 12:42] LABS: URINE BLOOD TRACE (NEGATIVE)
[2017-09-08 13:03] LABS: BARBITURATES, UR NEGATIVE (NEGATIVE); BENZODIAZEPINES, UR NEGATIVE (NEGATIVE); PHENCYCLIDINE, UR NEGATIVE (NEGATIVE)
[2017-09-08 13:30] LABS: OPIATES, UR POSITIVE (NEGATIVE)
--- NOTE | 2017-09-08 14:16 | PCM.BM ---
<Tj Reynoso - Last Filed: 09/08/17 14:17> Treatment Plan Problems - Problems identified on initial assessmt potential for opiate withdrawal Date Initiated: 09/08/17 Time Initiated: 14:15 Status: Active Treatment assets and liabiliti Patient Assests: cognitively intact Patient Liabilities: substance abuse - Milieu Protocol Maintain good personal hygiene: daily Encourage regular showers, daily Remind patient to perform daily oral care, daily Assist patient to perform ADL's Conduct patient checks and document Observation sheet: Q15 minutes Maintain personal safety: every shift Educate patient to report safety concerns to staff, every shift Monitor environment for contraband/sharps Medication safety: Monitor for expected outcome, potential side effects: every shift, Assess barriers to learning: every shift, Assess readiness for medication education: every shift <Orquidea Ponce - Last Filed: 09/09/17 15:26> - Diagnosis (1) Opiate dependence Status: Acute Interventions: 09/09/17 15:26 * Assess 7x/week regarding severity of withdrawal * Educate regarding risks, benefits, side effects and alternatives of medications * Use Motivational Interviewing for abstinence * Use CBT for relapse prevention * Medication management for withdrawal symptoms * Encourage medication assisted treatment *
[2017-09-08] MEDS ORDERED: Buprenorphine Hydrochloride 2 mg SL ONE ×2 (17:00→18:00)
[2017-09-08] MEDS: Aluminum Hydroxide/Magnesium Hydroxide Susp (30 mL) PO PRN (19:41)
[2017-09-09] MEDS: Aluminum Hydroxide/Magnesium Hydroxide Susp (30 mL) PO PRN (09:16)
[2017-09-09] MEDS: Buprenorphine Hydrochloride 2 mg SL SCH (09:16)
--- NOTE | 2017-09-09 15:30 | PCM.PSYCH ---
Initial Psychiatric Evaluation - Initial Psychiatric Evaluation Type of Admission: Voluntary Legal Status: Capacity Chief Complaint (in patient's own words): "I need help" History of Present Illness and Precipitating Events: The patient is seen, chart reviewed and case discussed. This is a 57-year-old -[place] female, lost job in late 2015, living with her adult daughter in [place], . The patient uses 5 bags of intranasal heroin for 10 years. She was in detox in our program in 2014 and also last year. She first used opiates in her late 40s. However she had used cocaine on and off prior to that and also she still uses marijuana occasionally and smokes 6 or 7 cigarettes a day. The patient is anxious and depressed but denies feeling suicidal. No manic or psychotic symptoms elicited. She had losses in her life and ongoing stressors. She is currently on no medications but used an antidepressant in the past. She particularly complains of not having appetite and losing weight. She denies alcohol use and other drug use, but smokes MJ. Past psych history: Depression on and off. This is her fifth detox and she was in [facility] in the past. Family psych history: Denies Medical history: Gastritis Current Medications: Active Medications Generic Name Dose Route Start Last Admin Trade Name Freq PRN Reason Stop Dose Admin Al Hydrox/Mg Hydrox/Simethicone 30 ml 09/08/17 14:55 09/08/17 19:41 Maalox 30 Ml PO 30 ml TID PRN Administration Indigestion / Heartburn Buprenorphine HCl 8 mg 09/09/17 10:00 09/09/17 09:16 Subutex SL 09/13/17 09:59 8 mg DAILY SARIKA Administration Taper Clonidine HCl 0.1 mg 09/08/17 14:55 Catapres PO Q8 PRN COWS Score More or Equal to 5 Cyclobenzaprine HCl 5 mg 09/09/17 14:00 09/09/17 14:09 Flexeril PO 5 mg TID SARIKA Administration Dicyclomine HCl 10 mg 09/09/17 09:57 09/09/17 14:09 Bentyl PO 10 mg Q6H PRN Administration gastric spasms Famotidine 40 mg 09/09/17 10:00 09/09/17 09:16 Pepcid PO 40 mg DAILY SARIKA Administration Gabapentin 100 mg 09/09/17 14:00 09/09/17 14:09 Neurontin PO 100 mg TID SARIKA Administration Hydroxyzine HCl 50 mg 09/08/17 14:59 09/09/17 14:09 Atarax PO 50 mg Q6H PRN Administration Anxiety Ibuprofen 600 mg 09/08/17 14:59 Motrin Tab PO Q6H PRN Pain, moderate (4-7) Loperamide HCl 2 mg 09/08/17 14:55 Imodium PO Q8 PRN Diarrhea Ondansetron HCl 4 mg 09/08/17 14:55 09/08/17 19:41 Zofran Tab PO 4 mg Q8 PRN Administration Nausea/Vomiting Trazodone HCl 100 mg 09/08/17 14:59 Desyrel PO HS PRN Insomnia Past Psychiatric History - Past Psychiatric History Previous Treatment History: None Pertinent Medical Hx (Current Medical&Sleep Prob, Allergies): Allergies Allergy/AdvReac Type Severity Reaction Status Date / Time No Known Allergies Allergy Verified 08/26/14 18:27 Famotidine [Pepcid] 40 mg PO DAILY #30 tab 06/28/16 Review of Systems - Neurological Neurological: UNREMARKABLE - Psychiatric Psychiatric: Abnormal Sleep Pattern, Anhedonia, Anxiety, Change in Appetite, Depression, Difficulty Concentrating. absent: Hallucinations, Homicidal Ideation, Paranoia, Suicidal Ideation Mental Status Examination - Personal Presentation Personal Presentation: Looks older than stated age - Affect Affect: Constricted - Motor Activity Motor Activity: Other (restless) - Reliability in Providing Information Reliability in Providing Information: Good - Speech Speech: Organized - Mood Mood: Depressed, Anxious - Formal Thought Process Formal Thought Process: No Impairment - Cognitive Functions Orientation: Person, Place, Situation, Time Sensorium: Alert Attention/Concentration: Easily distracted Abstract Thinking: Baldwin Estimate of Intelligence: Average Judgement: Intact, as evidence by: Insight regarding need for hospitalization Memory: Recent intact, as evidence by: Ability to recall events of the day, Remote intact, as evidenced by: Abilit to recall sig. life events - Risk Risk: Withdrawal, Diminished functioning - Strength & Assets Inventory Strength & Assets Inventory: Family support, Cooperative - Limitations Limitations: Other DSM 5 DX - DSM 5 DSM 5 Diagnosis: Opioid withdrawal Opioid use d/o- severe Anxiety d/o - unspecified Major depression, recurrent, moderate - Recommended/Plan of Treatment Treatment Recommendations and Plan of Treatment: Subutex detox Remeron for depression Gabapentin for anxiety and nerve pain Protonix EC for gastritis Attend activities and groups PA and CBT Refer to IOP or rehab Consider mAT Support and psychoed 33 min Projected ELOS: 4-5 days Prognosis: good w treatment - Smoking Cessation Smoking Cessation Initiated: Yes
[2017-09-09] MEDS: Pantoprazole 20 mg EC Tab PO SCH (16:00)
[2017-09-10] MEDS: Vitamins A & D Oint UD Foilpak TOP PRN ×2 (09:08→15:56)
[2017-09-10] MEDS: Pantoprazole 20 mg EC Tab PO SCH (09:09)
[2017-09-10] MEDS: Buprenorphine Hydrochloride 2 mg SL SCH (09:11)
--- NOTE | 2017-09-10 16:09 | PCM.PYCHPN ---
Psychiatric Progress Note - Psychiatric Progress Note Patient seen today, length of contact: 16 min Patient Chief Complaint: "I am better, I want to leave tomorrow" Problems Identified/Issues Discussed: The pt is seen, chart reviewed, case discussed with staff. Support given, CBT and WI used briefly No new symptoms reported, improving slowly and needs more time No SEs from medications, risks discussed. After care discussed Medication Change: Yes (detox changes daily) Medical Record Reviewed: Yes Mental Status Examination - Cognitive Function Orientation: Person, Place, Situation, Time Memory: Intact Attention: WNL Concentration: WNL Association: WNL Fund of Knowledge: Poor - Mood Mood: Depressed, Anxious - Affect Affect: Constricted - Formal Thought Process Formal Thought Process: No Impairment - Suicidal Ideation Suicidal Ideation: No - Homicidal Ideation Homicidal Ideation: No Goal/Treatment Plan - Goal/Treatment Plan Need for Continued Stay: Discharge may exacerbated symptoms, Severe functional impairment Progress Toward Problem(s) and Goals/Treatment Plan: Subutex detox Remeron for depression Gabapentin for anxiety and nerve pain Protonix EC for gastritis Attend activities and groups WI and CBT Refer to IOP or rehab Consider mAT Support and psychoed Estimated Date of D/C: 09/10/17 If changed, why: per her request
[2017-09-11] MEDS: Vitamins A & D Oint UD Foilpak TOP PRN (02:15)
[2017-09-11 06:29] VITALS: TEMP 98.1
--- NOTE | 2017-09-11 08:52 | PCM.PYCHDC ---
Mental Status Examination - Mental Status Examination Orientation: Person, Place, Situation, Time Memory: Intact Mood: Anxious Affect: Constricted Speech: Appropriate Attention: Poor Concentration: Poor Association: WNL Fund of Knowledge: Poor Formal Thought Process: No Impairment Suicidal Ideation: No Current Homicidal Ideation?: No Discharge Summary - Discharge Note Reason for Hospitalization: Opioid detox Consultations:: List each consultation separately and include: 1. Reason for request. 2. Findings. 3. Follow-up Summary of Hospital Course include:: 1. Description of specific treatment plan utilized for patients during their course of treatmen. 2. Summarize the time- course for resolution of acute symptoms and/or regressed behaviors. 3. Describe issues identified and worked on during hospitalization. 4. Describe medication utilized. 5. Describe medical problems identified and treated. 6. Reassessment of suicide risk Summary of Hospital Course: The patient is seen, chart reviewed and case discussed. On admission: This is a 57-year-old -[place] female, lost job in late 2015, living with her adult daughter in [place], . The patient uses 5 bags of intranasal heroin for 10 years. She was in detox in our program in 2014 and also last year. She first used opiates in her late 40s. However she had used cocaine on and off prior to that and also she still uses marijuana occasionally and smokes 6 or 7 cigarettes a day. The patient is anxious and depressed but denies feeling suicidal. No manic or psychotic symptoms elicited. She had losses in her life and ongoing stressors. She is currently on no medications but used an antidepressant in the past. She particularly complains of not having appetite and losing weight. She denies alcohol use and other drug use, but smokes MJ. Past psych history: Depression on and off. This is her fifth detox and she was in [facility] [place] [facility] rehabilitation in the past. Family psych history: Denies Medical history: Gastritis She will attend [facility]. She wanted to leave a day early b/c she was worried about her old mother who had dementia. Risks of leaving early discussed and she understood but still left. Hospital course: The pt was admitted and started on treatment with psychotherapy, support, psychoeducation and medications. AL and CBT used. The pt attended groups and activities, as well as milieu therapy. All the risks and benefits of medications are discussed and the patient understood and agreed. The pt improved with the treatments provided. After care discussed with the patient. [facility] (DSM [facility]) Condition upon Discharge: STABLE DSM 5: Opioid withdrawal Opioid use d/o- severe Anxiety d/o - unspecified Major depression, recurrent, moderate Disposition: HOME/ ROUTINE Follow-up Treatment Plan: Continue below medications after discharge. Follow after care plan as discussed. Use relapse prevention skills Return to ER or call 911 if suicidal, homicidal or symptoms relapse. Stay away from stress, alcohol and drugs. See primary doctor regularly and get labs. Prescriptions/Medication Reconciliation: Cyproheptadine [Periactin] 4 mg PO HS #30 tab Dicyclomine [Bentyl] 10 mg PO Q8 PRN #10 cap PRN Reason: gastric spasms Gabapentin [Neurontin] 100 mg PO TID #90 cap hydrOXYzine HCl [Atarax] 50 mg PO DAILY PRN #30 tab PRN Reason: Anxiety Mirtazapine [Remeron] 15 mg PO HS #30 tab Pantoprazole [Protonix EC Tab] 20 mg PO DAILY #30 ect - Smoking Cessation Smoking Cessation Medication prescribed: No
[2017-09-11 09:23] VITALS: BP 100/53; PULSE 100; RESP 20; O2SAT 98
[2017-09-11] MEDS: Buprenorphine Hydrochloride 2 mg SL SCH (09:51)
[2017-09-11] MEDS: Pantoprazole 20 mg EC Tab PO SCH (09:51)
== END 2017-09-11 11:00 | disposition home or self-care (01) | DRG 744 ==
LOC: C.ER 09:38 → C.7D 14:03
PROVIDERS: ADMIT Psychiatry & Neurology Psychiatry; ATTEND Psychiatry & Neurology Psychiatry
PROC: HZ2ZZZZ Detoxification Services for Substance Abuse Treatment (ICD-10-PCS; principal; 2017-09-08)
PROC: HZ59ZZZ Individual Psychotherapy for Substance Abuse Treatment, Supportive (ICD-10-PCS; 2017-09-08)
PROC: GZ3ZZZZ Medication Management (ICD-10-PCS; 2017-09-08)
PROC: HZ56ZZZ Individual Psychotherapy for Substance Abuse Treatment, Psychoeducation (ICD-10-PCS; 2017-09-08)
DX: F11.23 Opioid dependence with withdrawal (principal); F33.1 Major depressive disorder, recurrent, moderate; F12.90 Cannabis use, unspecified, uncomplicated; F17.210 Nicotine dependence, cigarettes, uncomplicated; F41.9 Anxiety disorder, unspecified; I10 Essential (primary) hypertension; K29.70 Gastritis, unspecified, without bleeding; Z87.11 Personal history of peptic ulcer disease